=== PATIENT | male | born 1955 | race Two or more races ===

== ENCOUNTER 2017-05-11 12:19 | Emergency (ER) | payer OTHER ==
[~2017-05-11] VITALS: Ht 170.2 cm; Wt 96.6 kg
--- NOTE | 2017-05-11 13:22 | EKG ---
[address] [address] Test Date: 2017-05-11 Test Time: 13:17:46 Pat Name: CYNDI KEMP Department: Room: Gender: M Early Morning Babysitter: : 1955 Requested By: CARLO LOERA Order Number: [id number] Reading MD: Measurements Intervals [place] Rate: 89 P: 44 IA: 152 QRS: 50 QRSD: 94 T: 56 QT: 350 QTc: 432 Interpretive Statements SINUS RHYTHM QRS(T) CONTOUR ABNORMALITY CONSIDER ANTEROSEPTAL MYOCARDIAL DAMAGE RI6.01 Unconfirmed report No previous ECG available for comparison
--- NOTE | 2017-05-11 13:50 | RAD ---
Indication: Chest pain. Time of exam 1346 hours. No prior studies are available for comparison. FINDINGS: The heart size is normal. The lungs are clear. No pleural effusion or pneumothorax is identified. The pulmonary vascularity is normal. IMPRESSION: No acute abnormality detected.
[2017-05-11 13:52] LABS: BASO % 1 % (0-3); EOS % 1 % (0-3); HEMATOCRIT 40.7 % (39.0-53.0); LYMPH # 0.9 x10^3/uL (1.0-4.8); LYMPH % 23 % (24-48); MEAN CORPUSCULAR HEMOGLOBIN 32 pg (25-35); MEAN CORPUSCULAR HGB CONC 34 g/dL (31-37); MEAN CORPUSCULAR VOLUME 92 fL (79-100); MONO # 0.3 x10^3/uL (0.0-1.1); MONO % 8 % (0-9); NEUT # 2.6 x10^3uL (1.8-7.7); NEUT % 68 % (31-73); PLATELET COUNT 173 x10^3/uL (140-400); RED BLOOD COUNT 4.42 x10^6/uL (4.30-5.70); RED CELL DISTRIBUTION WIDTH 12.7 % (11.5-14.5); WHITE BLOOD COUNT 3.8 x10^3/uL (4.0-11.0)
--- NOTE | 2017-05-11 14:08 | PHYS DOC ---
Past History Past Medical History: Diabetes, Hypertension Alcohol Use: None Drug Use: None Adult General Chief Complaint Chief Complaint: NAUSEA/VOMITING/DIARRHEA HPI HPI Patient is a 62-year-old male brought to the ED by his . Patient states that this morning at about 9 or 10:00 he took a "Energizer pill" which was a medication that he bought [id number] that I believe was probably a caffeine pill. He tried this because he has lately been feeling kind of sleepy. He also drank a cup of coffee. Shortly after taking the pill, he began to feel shaky, nauseated, and sweaty. He felt a "burning throughout his body" mostly concentrated in the epigastric area. He vomited 3 times. Now, he is feeling much better. He no longer feels shaky, nauseated, or burning. The patient was never short of air. The symptoms scared him. He's never had symptoms like this before. The patient is treated for hypertension, history of diabetes since 1994. He has never smoked. No cardiac history. Review of Systems Review of Systems Constitutional: As in history of present illness Respiratory: Denies cough or shortness of breath [] Cardiovascular: Denies chest pain GI: As in history of present illness Integument: Denies rash or skin lesions [] Neurologic: Denies headache, focal weakness or sensory changes [] Allergies Allergies Allergies Coded Allergies Type Severity Reaction Last Updated Verified No Known Drug Allergies 05/11/17 No Physical Exam Physical Exam Constitutional: Well developed, well nourished, no acute distress, non-toxic appearance. Alert, mentating normally, watching TV, appears entirely comfortable and nontoxic in no acute distress. HENT: Normocephalic, atraumatic, bilateral external ears normal, nose normal. [ ] Eyes: conjunctiva normal, no discharge. [] Neck: Normal range of motion, no stridor. [] Cardiovascular:Heart rate regular rhythm, no murmur [] Lungs & Thorax: Bilateral breath sounds clear to auscultation [] Abdomen: Bowel sounds normal, soft, no tenderness, no masses, no pulsatile masses. [] Skin: Warm, dry, no erythema, no rash. [] Extremities: No tenderness, no cyanosis, no clubbing, ROM intact, no edema. [] Neurologic: Alert and oriented X 3, normal motor function, normal sensory function, no focal deficits noted. [] Current Patient Data Vital Signs Vital Signs Date Time Temp Pulse Resp B/P (MAP) Pulse Ox O2 Delivery O2 Flow Rate FiO2 05/11/17 12:57 97.8 80 20 98 Room Air Lab Results Laboratory Tests Test 05/11/17 13:40 White Blood Count 3.8 x10^3/uL (4.0-11.0) L Red Blood Count 4.42 x10^6/uL (4.30-5.70) Hemoglobin 14.0 g/dL (13.0-17.5) Hematocrit 40.7 % (39.0-53.0) Mean Corpuscular Volume 92 fL (79-100) Mean Corpuscular Hemoglobin 32 pg (25-35) Mean Corpuscular Hemoglobin Concent 34 g/dL (31-37) Red Cell Distribution Width 12.7 % (11.5-14.5) Platelet Count 173 x10^3/uL (140-400) Neutrophils (%) (Auto) 68 % (31-73) Lymphocytes (%) (Auto) 23 % (24-48) L Monocytes (%) (Auto) 8 % (0-9) Eosinophils (%) (Auto) 1 % (0-3) Basophils (%) (Auto) 1 % (0-3) Neutrophils # (Auto) 2.6 x10^3uL (1.8-7.7) Lymphocytes # (Auto) 0.9 x10^3/uL (1.0-4.8) L Monocytes # (Auto) 0.3 x10^3/uL (0.0-1.1) Eosinophils # (Auto) 0.0 x10^3/uL (0.0-0.7) Basophils # (Auto) 0.0 x10^3/uL (0.0-0.2) EKG EKG 12-lead EKG read by me. Sinus rhythm. Heart rate 89. There are no acute ST or T wave changes indicative of ischemia or infarction. No STEMI. 1317 [] Radiology/Procedures Radiology/Procedures One view portable chest x-ray read by me. Heart size normal. Lung jin are clear. Normal chest x-ray. [] Course & Med Decision Making Course & Med Decision Making Pertinent Labs and Imaging studies reviewed. (See chart for details) 62-year-old male with a history of hypertension and diabetes had an episode of symptoms after taking a "energy pill" that most likely was caffeine. His symptoms are pretty much gone when I saw him. I suggested that we do a bit of a workup with some labs, EKG, chest x-ray, and he is agreeable to that plan. Patient remained stable in the ED. Labs normal except elevated blood sugar. EKG , chest x-ray normal. I believe the patient's symptoms were due to a side effect to the "energy" pill that he took, likely caffeine. See instructions for plan. [] Dragon Disclaimer Dragon Disclaimer This chart was dictated in whole or in part using Voice Recognition software in a busy, high-work load, and often noisy Emergency Department environment. It may contain unintended and wholly unrecognized errors or omissions. Departure Departure: Impression: Primary Impression: Medication side effects Disposition: HOME, SELF-CARE Condition: STABLE Referrals: PCP,NO (PCP) Additional Instructions: As we discussed, I believe your symptoms were likely due to the "energy pill" that you took. Most [id number] energy pills or caffeine. I recommend using caffeine in only small amounts. If you continue to have symptoms, return or see your doctor. CARLO LOERA MD May 11, 2017 14:08
[2017-05-11 14:17] LABS: ALBUMIN 3.6 g/dL (3.4-5.0); ALBUMIN/GLOBULIN RATIO 1.1 (1.0-1.7); CALCIUM 8.4 mg/dL (8.5-10.1); CREATININE 1.3 mg/dL (0.7-1.3); GFR 56.1; POTASSIUM 4.7 mmol/L (3.5-5.1); TOTAL BILIRUBIN 0.3 mg/dL (0.2-1.0)
[2017-05-11 14:18] LABS: MAGNESIUM 1.9 mg/dL (1.8-2.4)
[2017-05-11 14:30] VITALS: BP 124/83
== END 2017-05-11 14:30 | disposition home or self-care (01) ==
LOC: ER 12:19
DX: T50.995A Adverse effect of other drugs, medicaments and biological substances, initial encounter (principal); E11.9 Type 2 diabetes mellitus without complications; I10 Essential (primary) hypertension; Y92.89 Other specified places as the place of occurrence of the external cause
CPT/HCPCS: 36415; 71010; 80053; 82553; 82947; 83690; 83735; 83880; 84484; 85027; 93005; 99285-25

== ENCOUNTER → 2018-08-24 | Outpatient (CLI) | payer OTHER ==
--- NOTE | 2018-08-24 15:12 | RAD ---
Right ankle, 3 views, 08/24/2018: HISTORY: Pain There has been previous fusion of the right tibiotalar articulation. A metallic plate with multiple screws is present traversing the fused joint. There is underlying distal tibial deformity compatible with an old healed fracture. There is an old healed distal fibular fracture. There is spurring at the subtalar articulation. The tips of the lowest screws appear to encroach upon the superior aspect of the calcaneus. Right foot, 3 views, 08/24/2018: There are mild degenerative changes at the mid foot level, the first MTP joint and scattered interphalangeal joints. No acute fracture or dislocation is identified. IMPRESSION: 1. Old healed distal tibial and fibular fractures. 2. Surgical fusion of the tibiotalar articulation with a fixation plate and screws in place. 3. The lowest screws appear to extend through the talus into the superior aspect of the calcaneus. 3. Mild to moderate scattered degenerative changes as described above. Electronically signed by: Celso Camara MD (08/24/2018 3:09 PM) [facility]
== END | disposition home or self-care (01) ==
LOC: DXRAD 12:44
PROVIDERS: ATTEND Physician Assistant Medical
DX: Z47.89 Encounter for other orthopedic aftercare (principal); M19.071 Primary osteoarthritis, right ankle and foot; Z98.1 Arthrodesis status; Z87.81 Personal history of (healed) traumatic fracture
CPT/HCPCS: 73610; 73630

== ENCOUNTER → 2019-07-25 | Outpatient (CLI) | payer OTHER ==
--- NOTE | 2019-07-25 13:41 | RAD ---
LUMBAR SPINE MIN 4V History: Back pain Comparison: None. Findings: 6 views of the lumbar spine are submitted. There is very mild lumbar dextroscoliosis centered near L2. AP alignment is overall maintained. Vertebral body stature is overall maintained. There is multilevel lumbar facet into change greater inferiorly of the lumbar spine. It is difficult to confirm integrity of the L5 pars interarticularis on this exam. There is moderate degenerative disc disease at L4-5 and L5-S1 and to lesser degree of more superior levels. There is multilevel lumbar spondylosis greatest L1-L2 through L3-4. Impression: 1. There is degenerative disc disease greatest L4-5 and L5-S1. There is multilevel spondylosis and facet degenerative change. There is difficult to confirm integrity of the L5 pars interarticularis on this exam no significant spondylolisthesis. Electronically signed by: Delvis Hrenandez MD (07/25/2019 1:38 PM) [id number]
== END | disposition home or self-care (01) ==
LOC: DXRAD 08:17
PROVIDERS: ATTEND Physician Assistant Medical
DX: M51.37 Other intervertebral disc degeneration, lumbosacral region (principal); M47.26 Other spondylosis with radiculopathy, lumbar region
CPT/HCPCS: 72110

== ENCOUNTER → 2019-10-25 | Outpatient (CLI) | payer OTHER ==
--- NOTE | 2019-10-26 08:36 | RAD ---
Five-view cervical spine series Clinical indications: Neck pain. FINDINGS: No acute fracture or discitis or lytic process or prevertebral soft tissue swelling is evident. There is a grade 1 anterolisthesis of C4-5. There is moderate degenerative disc space narrowing and endplate spurring at C5-6 and C6-7. There is narrowing of the right C5-6 and C6-7 neural foramina due to uncinate joint facet arthropathy. This is also seen on the left side. IMPRESSION: Degenerative cervical spondylosis at C5-6 and C6-7. Degenerative anterolisthesis at C4-5 Electronically signed by: Cameron Reardon MD (10/26/2019 8:33 AM) [email or web address]
== END | disposition home or self-care (01) ==
LOC: DXRAD 12:26
PROVIDERS: ATTEND Physician Assistant Medical
DX: M47.22 Other spondylosis with radiculopathy, cervical region (principal); M48.02 Spinal stenosis, cervical region; M43.02 Spondylolysis, cervical region; M46.82 Other specified inflammatory spondylopathies, cervical region
CPT/HCPCS: 72050